=== PATIENT | female | born 1990 | race African-American/Black ===

== ENCOUNTER 2017-09-04 23:16 | Emergency (ER) | payer MEDICAID ==
[~2017-09-04] VITALS: Ht 170.2 cm; Wt 84.1 kg
[~2017-09-04 23:16] MED LIST: ALBU2.5V13 IH; BALS750C6
[2017-09-04 23:33] VITALS: BP 116/70
== END 2017-09-05 02:56 | disposition left against medical advice (07) ==
LOC: ER 09-05 00:25
DX: Z53.21 Procedure and treatment not carried out due to patient leaving prior to being seen by health care provider (principal)
CPT/HCPCS: 93005